=== PATIENT | female | born 1970 | race Caucasian/White ===

== ENCOUNTER 2017-01-23 14:22 | Inpatient (IN) | payer OTHER ==
[~2017-01-23] VITALS: Ht 172.7 cm; Wt 90.7 kg
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
--- NOTE | ~2017-01-23 | HP ---
Unit #: [id number] #: [id number] Patient: MU DUMAS [id number] [place] [address] [id number] MR#: [id number] NAME: MU DUMAS. ROOM: P121 Age: 46 Sex: F Admission Date: 01/23/2017 : 1970 Attending Physician: Alber Morrell M.D. Admitting Physician: Alber Morrell M.D. Primary Care Physician: Generic Doctor Not In System HISTORY AND PHYSICAL HISTORY OF PRESENT ILLNESS Mu is a 46 year old admitted to [address] [place] [address] because of her belligerent, aggressive behavior. PAST MEDICAL HISTORY 1. Diabetes mellitus. 2. Hypothyroidism. PAST SURGICAL HISTORY Nothing reported. ALLERGIES Ampicillin. SOCIAL HISTORY She denies cigarettes, alcohol and illicit drug use. FAMILY HISTORY Medically noncontributory. REVIEW OF SYSTEMS CONSTITUTIONAL: No fever or chills. HEENT: Denies any sore throat, ear pain or runny nose. CARDIOVASCULAR: Denies chest pain, irregular heart rhythm or palpitations. CHEST: Denies shortness of breath or cough. No hemoptysis. GASTROINTESTINAL: Denies nausea, vomiting, diarrhea or chronic constipation. ENDOCRINE: Denies history of increased thirst or urination. No recent significant weight loss or gain. GENITOURINARY: Denies dysuria, frequency, or hematuria. SKIN: Denies any rashes. HEMATOLOGIC: Denies history of increased bleeding or bruising. MUSCULOSKELETAL: Denies any hot, swollen joints. No generalized muscle pain. NEUROLOGIC: Denies problems with vision or speech. No frequent, severe headaches. No numbness, tingling or weakness in any extremities. Denies loss of bladder or bowel control. CURRENT MEDICATIONS 1. Levemir 20 units q.h.s. 2. Neurontin 300 mg b.i.d. 3. NovoLog per sliding scale. 4. Glucophage 500 mg b.i.d. Unit #: [id number] #: [id number] Patient: MU DUMAS 5. Desyrel 100 mg q.h.s. p.r.n. 6. Milk of Magnesia p.r.n. 7. Maalox p.r.n. 8. Tylenol p.r.n. 9. Synthroid 0.1 mg daily. 10. Nicotine patch 14 mg daily. PHYSICAL EXAMINATION GENERAL: Alert, obese, in no apparent distress. VITAL SIGNS: Blood pressure 117/70, heart rate 100, respirations 16, temperature 98.6. WEIGHT: 200. HEIGHT: 5 feet 8 inches. SKIN: Warm and dry without rash or lesion. HEENT: Normocephalic. TMs not viewed. Oral and nasal passages clear. Conjunctivae clear. PERRLA. EOMs intact. NECK: Supple without lymphadenopathy or thyromegaly. HEART: Regular rate and rhythm without murmur. LUNGS: Clear. ABDOMEN: Soft, nontender. : Not done. EXTREMITIES: No evidence of cyanosis, clubbing or edema. Moves all without focal deficit. NEUROLOGICAL: Grossly within normal limits. Cranial Nerves: II: Visual davila are intact. III, IV AND : Extraocular movements are intact. Pupils are equal, round and reactive to light. V: Facial sensation is grossly normal. VII: Facial movements and expression are normal. VIII: Auditory acuity grossly intact. IX, X: Uvula is midline. Phonation is normal. XI: Patient shrugs shoulders and turns head normally. XII: Tongue protrudes in the midline. Sensory and Motor Function: Sensory and motor sensation is grossly normal. Motor: moves all extremities well. Coordination: Gait is normal. Deep Tendon Reflexes: Intact. IMPRESSION Psychiatric admission. RECOMMENDATIONS PSYCHIATRIC: Per psychiatrist. MEDICAL: See no contraindication to participate in facility's activities. MEDICAL PROGNOSIS Good. MEDICAL CONDITION Stable. Dictated by... Melissa Boles P.A.-C. for Cheryl Dorantes/godfrey TD: 01/23/2017 18:41 Unit #: [id number] #: [id number] Patient: MU DUMAS JOB #: [id number] HISTORY AND PHYSICAL Page 1 of 1 X Melissa Boles HISTORY AND PHYSICAL
== END 2017-01-25 15:55 | disposition home or self-care (01) | DRG 881 ==
LOC: P1S 14:22
DX: F32.9 Major depressive disorder, single episode, unspecified (principal); E11.9 Type 2 diabetes mellitus without complications; E03.9 Hypothyroidism, unspecified; Z79.4 Long term (current) use of insulin; Z88.1 Allergy status to other antibiotic agents
CPT/HCPCS: 82947